=== PATIENT | female | born 1995 | race Caucasian/White ===

== ENCOUNTER 2016-07-20 07:00 | Outpatient (CLI) | payer OTHER ==
[2016-07-20 07:25] VITALS: BMI 31.2
[2016-07-20] MEDS ORDERED: IV START KIT ONE (07:28)
[2016-07-20] MEDS ORDERED: LACTATED RINGERS 1,000 ML ONE (07:28)
[2016-07-20] MEDS ORDERED: TERBUTALINE SULFATE 1 MG/ML VIAL SUB-Q ONE (07:35)
[2016-07-20] MEDS ORDERED: LACTATED RINGERS 1,000 ML IV SCH (07:45)
--- NOTE | 2016-07-20 09:44 | PDOC36 ---
Provider Note Subject: External Cephalic Version Note: 20yo , agnes [birth year]/10[birth year]16, 37w today Breech presentation, presents for external cephalic version has otherwise been uncomplicated; has been seen by CNM group with centering visits. Ultrasound at bedside shows eitan breech presentation, baby facing left side. Posterior placenta. Procedure reviewed. Terbutaline given 0.25mg x 1. Attempted counterclockwise (backwards roll) x 3. Subsequently after break, attempted clockwise roll x 1. However still unsuccessful. FHT: 130's, reactive, mod lj, no decels. Discussed plan going forward - pt will f/u with CNM to discuss trying ECV again or elective primary c/section.
== END 2016-07-20 10:19 | disposition home or self-care (01) ==
LOC: FBCOUT 07:00 → FBC 07:00 → FBCOUT 10:19
PROVIDERS: ATTEND Obstetrics & Gynecology
DX: O32.1XX0 Maternal care for breech presentation, not applicable or unspecified (principal); Z3A.37 37 weeks gestation of pregnancy
CPT/HCPCS: 96372; 96361; 59412; 59025; 76815; J3105; J7120